=== PATIENT | male | born 1960 | race Caucasian/White ===

== ENCOUNTER 2022-04-07 07:45 | Emergency (ER) | payer OTHER ==
[~2022-04-07] VITALS: Ht 180.3 cm; Wt 88.5 kg
--- NOTE | 2022-04-07 08:00 | NUR ---
BIB C/O LOWER BACK PAIN SINCE TUESDAY. WORK RELATED. STATED HE HAS CHRONIC BACK PAIN FROM HIS JOB AND LAST WEEK THE PAIN BECAME WORSE AND YESTERDAY AFTER DRIVING HE COULD NOT WALK. VITALS ARE WITHIN NORMAL LIMITS. AWAITING MD HIGH.
--- NOTE | 2022-04-07 08:18 | NUR ---
DR LOMBARDI AT BEDSIDE
[2022-04-07] MEDS ORDERED: KETOROLAC TROMETHAMINE INJ 30 MG/ML VIAL ONE (08:22)
[2022-04-07] MEDS ORDERED: CYCLOBENZAPRINE 10 MG TABLET ONE (08:22)
[2022-04-07] MEDS ORDERED: IBUPROFEN 200 MG TABLET ONE (08:28)
[2022-04-07] MEDS ORDERED: IBUPROFEN 600 MG TABLET ONE (08:29)
[2022-04-07] MEDS ORDERED: KETOROLAC TROMETHAMINE INJ 30 MG/ML VIAL IM ONE (08:30)
[2022-04-07] MEDS ORDERED: IBUPROFEN 400 MG TABLET PO ONE (08:30)
[2022-04-07] MEDS ORDERED: CYCLOBENZAPRINE 10 MG TABLET PO ONE (08:30)
[2022-04-07] MEDS ORDERED: IBUP-1957 PO (08:50)
[2022-04-07] MEDS ORDERED: CYCL5TAB PO (08:50)
[2022-04-07 08:58] VITALS: BP 128/71
--- NOTE | 2022-04-07 08:59 | NUR ---
Patient discharged to home in stable condition. Written and verbal after care instructions given. Patient verbalizes understanding of instruction.
== END 2022-04-07 08:58 | disposition home or self-care (01) ==
LOC: ER 08:04
DX: S39.012A Strain of muscle, fascia and tendon of lower back, initial encounter (principal); X50.0XXA Overexertion from strenuous movement or load, initial encounter; Y93.89 Activity, other specified; Y92.89 Other specified places as the place of occurrence of the external cause; Y99.0 Civilian activity done for income or pay
CPT/HCPCS: J1885